=== PATIENT | female | born 1950 | race Caucasian/White ===

== ENCOUNTER 2017-07-29 08:47 | Day surgery (SDC) | payer MEDICARE, BC ==
[~2017-07-29 08:47] MED LIST: LIDOCAINE HCL 1% MPF 30 SOL ONE; PROPOFOL 500 MG/50 ML EMU IV ONE
[2017-07-29 09:15] VITALS: RESP 16
[2017-07-29 10:42] VITALS: BP 120/62; PULSE 63; TEMP 98.8; O2SAT 96
== END 2017-07-29 11:15 | disposition home or self-care (01) | DRG 951 ==
LOC: SURG 08:47
PROVIDERS: ATTEND Surgery
DX: Z12.11 Encounter for screening for malignant neoplasm of colon (principal)
CPT/HCPCS: J2001; J2704